=== PATIENT | female | born 1955 | race Caucasian/White ===

== ENCOUNTER 2019-08-11 13:48 | Observation (INO) ==
[2019-08-11 14:30] LABS: ABS Lymphocytes 1.2 10^3/ul (1.0-4.8); ABS Monocytes 0.4 10^3/ul (0-0.8); Eosinophil % 0.7 %; Hematocrit 37 % (35-47); Hemoglobin 12.8 g/dL (12.0-16.0); Lymphocyte % 21.7 %; Mean Corpuscular HGB Conc 35 g/dL (31-36); Mean Corpuscular Hemoglobin 34 pg (27-31); Mean Corpuscular Volume 97 fL (80-97); Mean Platelet Volume 7.4 fL (7.4-10.4); Platelet Count 246 10^3/uL (150-450); Red Blood Count 3.78 10^6 /uL (3.70-4.87); Red Cell Distribution Width 13 % (10-15); White Blood Count 5.7 10^3/uL (3.5-10.8)
[2019-08-11 15:02] LABS: Albumin 4.5 g/dL (3.2-5.2); Albumin/Globulin Ratio 1.7 (1-3); BUN/Creatinine Ratio 12.2 (8-20); EGFR African American 96.5 (>60); EGFR Non-African American 79.8 (>60); Globulin 2.6 g/dL (2-4); Total Bilirubin 0.5 mg/dL (0.2-1.0); Total Protein 7.1 g/dL (6.4-8.9)
[2019-08-11] MEDS ORDERED: NS 0.9% 1000 ml BAG 1,000 ML IV SCH ×2 (16:45→23:30)
[2019-08-11] MEDS ORDERED: Enoxaparin 40 MG/0.4 ML SYR(*) SUBCUT SCH (17:00)
[2019-08-11] MEDS ORDERED: Iohexol 350 (CONTRAST) 500 ML MDV IV ONE (21:35)
[2019-08-12 06:22] LABS: BUN/Creatinine Ratio 12.2 (8-20); EGFR African American 96.5 (>60); EGFR Non-African American 79.8 (>60); HDL Cholesterol 55.4 mg/dL; Potassium 3.5 mmol/L (3.5-5.0)
[2019-08-12 06:36] LABS: TSH (Thyroid Stimulating Horm) 2.09 mcIU/mL (0.34-5.60)
[2019-08-12 15:10] VITALS: BP 100/69
== END 2019-08-12 15:50 | disposition home or self-care (01) ==
LOC: MED 13:48 → ED 13:48 → MED 17:38
PROVIDERS: ADMIT Internal Medicine; ATTEND Internal Medicine